=== PATIENT | female | born 1995 | race Caucasian/White ===

== ENCOUNTER 2024-06-18 06:44 | Day surgery (SDC) | payer OTHER ==
[~2024-06-18] VITALS: Ht 162.6 cm; Wt 63.5 kg
[2024-06-18] MEDS ORDERED: diphenhydrAMINE 50 MG/ML VIAL ONE (07:44)
[2024-06-18] MEDS ORDERED: fentaNYL citrate 0.05 MG/ML VIAL ONE (07:45)
[2024-06-18] MEDS ORDERED: MIDAZOLAM 5 MG/5 ML VIAL ONE (07:45)
[2024-06-18] MEDS: MIDAZOLAM 5 MG/5 ML VIAL IV ONE (08:07)
[2024-06-18] MEDS: fentaNYL citrate 0.05 MG/ML VIAL IVP ONE (08:08)
[2024-06-18] MEDS: diphenhydrAMINE 50 MG/ML VIAL IVP ONE (08:09)
[2024-06-18] MEDS: LIDOCAINE 2% 100 MG/5 ML UJET TP ONE (08:13)
== END 2024-06-18 09:54 | disposition home or self-care (01) ==
LOC: MDS 06:44 → MMU 06:44 → MDS 09:54
PROVIDERS: ATTEND Internal Medicine Gastroenterology
DX: K92.1 Melena (principal); L29.0 Pruritus ani; Z90.49 Acquired absence of other specified parts of digestive tract; Z88.8 Allergy status to other drugs, medicaments and biological substances; Z79.899 Other long term (current) drug therapy
CPT/HCPCS: 45378; J1200; J2250; J3010